=== PATIENT | female | born 1980 | race Caucasian/White ===

== ENCOUNTER 2019-08-07 20:18 | Emergency (ER) | payer SELFPAY ==
[~2019-08-07] VITALS: Ht 175.3 cm; Wt 64.1 kg
[2019-08-07 20:33] VITALS: BP 108/62; TEMP 98.8
[2019-08-07] MEDS ORDERED: ZOLOFT 25MG25 MG (20:47)
[2019-08-07 22:03] VITALS: PULSE 91
== END 2019-08-07 22:03 | disposition home or self-care (01) ==
LOC: COL.ER 20:18
DX: F41.9 Anxiety disorder, unspecified (principal); F17.210 Nicotine dependence, cigarettes, uncomplicated; Z98.51 Tubal ligation status

== ENCOUNTER 2019-12-30 19:57 | Emergency (ER) | payer SELFPAY ==
[~2019-12-30] VITALS: Ht 175.3 cm; Wt 66.4 kg
[~2019-12-30 19:57] MED LIST: ZOLOFT 25MG25 MG
[2019-12-30 20:34] LABS: COLLECTION METHOD CLEAN CATCH
[2019-12-30 20:42] LABS: AMORPHOUS CRYSTAL Present /uL; BUDDING YEAST Present /hpf; MUCOUS Present /lpf; PH 7 (5-8); SQUAMOUS EPITHELIAL 0-2 /hpf; URINE APPEARANCE Cloudy; URINE BACTERIA Moderate /hpf; URINE BILIRUBIN Negative (NEGATIVE); URINE BLOOD 2+ (NEGATIVE); URINE COLOR Yellow; URINE GLUCOSE Negative (NEGATIVE); URINE KETONE Negative (NEGATIVE); URINE LEUKOCYTE ESTERASE 3+ (NEGATIVE); URINE NITRATE Negative (NEGATIVE); URINE PROTEIN(semi-quant) Negative (NEGATIVE); URINE RBC >50 /hpf; URINE UROBILINOGEN Negative (NEGATIVE)
[2019-12-30] MEDS ORDERED: CEPHALEXIN500 M1 PO (21:22)
[2019-12-30] MEDS ORDERED: DOXYCYCLINE 10100 MG PO (21:22)
[2019-12-30] MEDS ORDERED: VALTREX1 GM PO (21:22)
[2019-12-30 21:55] VITALS: BP 138/76; PULSE 70; TEMP 98.9
== END 2019-12-30 21:57 | disposition home or self-care (01) ==
LOC: COL.ER 19:57
PROVIDERS: Emergency Medicine
DX: A60.03 Herpesviral cervicitis (principal); N39.0 Urinary tract infection, site not specified; L08.9 Local infection of the skin and subcutaneous tissue, unspecified; Z98.51 Tubal ligation status
CPT/HCPCS: J0696

== ENCOUNTER 2020-06-02 18:50 | Emergency (ER) | payer SELFPAY ==
[~2020-06-02] VITALS: Ht 175.3 cm; Wt 63.6 kg
[~2020-06-02 18:50] MED LIST changes: +CEPHALEXIN500 M1 PO; +DOXYCYCLINE 10100 MG PO; +VALTREX1 GM PO
[2020-06-02 18:54] VITALS: TEMP 98.2
[2020-06-02 19:36] LABS: COLLECTION METHOD CLEAN CATCH
[2020-06-02 19:40] LABS: BASO % 0.4 % (0.0-2.0); EOS # 0.1 (0.0-0.7); EOS % 1.2 % (0-4.0); GRAN # 7.3 (1.4-6.5); GRAN % 71.9 % (42.2-75.2); HEMATOCRIT 42.8 % (37.0-47.0); HEMOGLOBIN 13.7 g/dl (12.5-16.0); LYMPH # 2.2 (1.2-3.4); LYMPH % 21.5 % (20.0-51.0); MEAN CELL VOLUME 87 fl (80.0-100.0); MEAN CORPUSCULAR HEMOGLOBIN 28 pg (27.0-31.0); MEAN CORPUSCULAR HGB CONC 32 g/dl (33.0-37.0); MEAN PLATELET VOLUME 10.9 fl (7.4-10.4); MONO # 0.5 (0.1-0.6); MONO % 4.6 % (1.7-9.3); PLATELET COUNT 415 K/mm3 (130-400); RED BLOOD COUNT 4.91 M/mm3 (4.10-5.30); REDCELL DISTRIBUTION WIDTH-CV 13.3 % (11.5-14.5)
[2020-06-02 19:47] LABS: BUDDING YEAST Present /hpf; MUCOUS Present /lpf; PH 8 (5-8); SQUAMOUS EPITHELIAL None Seen /hpf; URINE APPEARANCE Cloudy; URINE BACTERIA Rare /hpf; URINE BILIRUBIN Negative (NEGATIVE); URINE BLOOD 2+ (NEGATIVE); URINE COLOR Yellow; URINE GLUCOSE Negative (NEGATIVE); URINE KETONE Negative (NEGATIVE); URINE LEUKOCYTE ESTERASE 3+ (NEGATIVE); URINE NITRATE Positive (NEGATIVE); URINE PROTEIN(semi-quant) 1+ (NEGATIVE); URINE RBC >50 /hpf; URINE UROBILINOGEN Negative (NEGATIVE)
[2020-06-02 19:55] LABS: ALANINE AMINOTRANSFERASE 12 U/L (4-34); ALBUMIN 3.8 gm/dL (3.5-5.0); ALKALINE PHOSPHATASE 55 U/L (50-136); ANION GAP 5 mmol/L (7-16); AST,SGOT 21 U/L (15-37); BILIRUBIN,TOTAL 0.3 mg/dL (0.0-1.0); BLOOD UREA NITROGEN 18 mg/dL (7-17); CALCIUM 8.9 mg/dL (8.4-10.2); CARBON DIOXIDE 31 mmol/L (22-30); CHLORIDE 101 mmol/L (98-107); GLUCOSE 93 mg/dL (74-106); POTASSIUM 3.5 mmol/L (3.4-5.0); SODIUM 137 mmol/L (137-145)
[2020-06-02 19:57] LABS: TRICYCLIC ANTIDEPRESS URINE NEGATIVE
[2020-06-02 20:11] LABS: ACETAMINOPHEN < 10 ug/mL (10-30); ALCOHOL(ethanol),MEDICAL < 10 mg/dL; SALICYLATE < 1.0 mg/dL
[2020-06-02] MEDS ORDERED: MACROBID 1100 MG/CAP PO (22:33)
[2020-06-02 23:31] VITALS: BP 152/100; PULSE 72
== END 2020-06-02 23:34 | disposition home or self-care (01) ==
LOC: COL.ER 18:50
PROVIDERS: Nurse Practitioner Primary Care
DX: F15.10 Other stimulant abuse, uncomplicated (principal); F22 Delusional disorders; N39.0 Urinary tract infection, site not specified; F41.9 Anxiety disorder, unspecified; F32.9 Major depressive disorder, single episode, unspecified; F17.210 Nicotine dependence, cigarettes, uncomplicated

== ENCOUNTER 2020-06-21 14:05 | Emergency (ER) | payer SELFPAY ==
[~2020-06-21] VITALS: Ht 175.3 cm; Wt 59.1 kg
[~2020-06-21 14:05] MED LIST changes: +MACROBID 1100 MG/CAP PO
[2020-06-21 14:10] VITALS: BP 166/113; PULSE 120; TEMP 98.7
== END 2020-06-21 14:32 | disposition left against medical advice (07) ==
LOC: COL.ER 14:05
DX: F41.9 Anxiety disorder, unspecified (principal); Z53.21 Procedure and treatment not carried out due to patient leaving prior to being seen by health care provider

== ENCOUNTER 2020-06-21 17:24 | Emergency (ER) | payer SELFPAY ==
[~2020-06-21] VITALS: Ht 175.3 cm; Wt 63.6 kg
[2020-06-21 17:30] VITALS: TEMP 97.5
[2020-06-21 18:12] LABS: BASO % 0.3 % (0.0-2.0); EOS % 0.1 % (0-4.0); GRAN # 7.1 (1.4-6.5); GRAN % 77.9 % (42.2-75.2); HEMATOCRIT 44.8 % (37.0-47.0); LYMPH # 1.6 (1.2-3.4); LYMPH % 16.9 % (20.0-51.0); MEAN CELL VOLUME 83 fl (80.0-100.0); MEAN CORPUSCULAR HEMOGLOBIN 28 pg (27.0-31.0); MEAN CORPUSCULAR HGB CONC 34 g/dl (33.0-37.0); MEAN PLATELET VOLUME 10.8 fl (7.4-10.4); MONO # 0.4 (0.1-0.6); MONO % 4.6 % (1.7-9.3); PLATELET COUNT 356 K/mm3 (130-400); RED BLOOD COUNT 5.38 M/mm3 (4.10-5.30); REDCELL DISTRIBUTION WIDTH-CV 13.7 % (11.5-14.5)
[2020-06-21 18:38] LABS: ALCOHOL(ethanol),MEDICAL < 10 mg/dL
[2020-06-21 18:48] LABS: ALANINE AMINOTRANSFERASE 14 U/L (4-34); ALBUMIN 4.3 gm/dL (3.5-5.0); ALKALINE PHOSPHATASE 74 U/L (50-136); ANION GAP 8 mmol/L (7-16); AST,SGOT 21 U/L (15-37); BILIRUBIN,TOTAL 0.6 mg/dL (0.0-1.0); BLOOD UREA NITROGEN 18 mg/dL (7-17); CALCIUM 9.6 mg/dL (8.4-10.2); CARBON DIOXIDE 28 mmol/L (22-30); CHLORIDE 103 mmol/L (98-107); CREATININE, serum 0.87 (0.52-1.25); GLUCOSE 111 mg/dL (74-106); SODIUM 139 mmol/L (137-145); TOTAL PROTEIN 7.6 gm/dL (6.4-8.2)
[2020-06-21 18:50] LABS: ACETAMINOPHEN < 10 ug/mL (10-30); SALICYLATE < 1.0 mg/dL
[2020-06-21 20:23] VITALS: BP 164/96; PULSE 88
== END 2020-06-21 20:30 | disposition home or self-care (01) ==
LOC: COL.ER 17:24
PROVIDERS: Nurse Practitioner
DX: F41.9 Anxiety disorder, unspecified (principal); F15.10 Other stimulant abuse, uncomplicated; F17.200 Nicotine dependence, unspecified, uncomplicated; Z98.84 Bariatric surgery status; Z32.02 Encounter for pregnancy test, result negative
CPT/HCPCS: J2060; J7030

== ENCOUNTER 2020-06-24 11:49 | Emergency (ER) | payer SELFPAY ==
[~2020-06-24] VITALS: Ht 175.3 cm; Wt 63.6 kg
[2020-06-24 11:59] VITALS: TEMP 98.3
[2020-06-24 13:50] VITALS: BP 136/96; PULSE 86
== END 2020-06-24 13:50 | disposition home or self-care (01) ==
LOC: COL.ER 11:49
DX: F41.9 Anxiety disorder, unspecified (principal); F15.10 Other stimulant abuse, uncomplicated; I45.81 Long QT syndrome; Z98.84 Bariatric surgery status

== ENCOUNTER 2020-06-30 21:00 | Emergency (ER) | payer SELFPAY ==
[~2020-06-30] VITALS: Ht 175.3 cm; Wt 63.6 kg
[2020-06-30 21:24] VITALS: BP 134/99; PULSE 91; TEMP 97.4
[2020-07-01 00:19] LABS: BASO % 0.3 % (0.0-2.0); EOS # 0.1 (0.0-0.7); EOS % 0.8 % (0-4.0); GRAN % 72.1 % (42.2-75.2); HEMATOCRIT 40.7 % (37.0-47.0); HEMOGLOBIN 13.3 g/dl (12.5-16.0); LYMPH # 2.4 (1.2-3.4); LYMPH % 21.7 % (20.0-51.0); MEAN CELL VOLUME 86 fl (80.0-100.0); MEAN CORPUSCULAR HEMOGLOBIN 28 pg (27.0-31.0); MEAN CORPUSCULAR HGB CONC 33 g/dl (33.0-37.0); MEAN PLATELET VOLUME 10.5 fl (7.4-10.4); MONO # 0.5 (0.1-0.6); MONO % 4.8 % (1.7-9.3); PLATELET COUNT 351 K/mm3 (130-400); RED BLOOD COUNT 4.75 M/mm3 (4.10-5.30); REDCELL DISTRIBUTION WIDTH-CV 13.4 % (11.5-14.5)
[2020-07-01 00:43] LABS: ALCOHOL(ethanol),MEDICAL < 10 mg/dL
[2020-07-01 00:46] LABS: BLOOD UREA NITROGEN 22 mg/dL (7-17); CALCIUM 8.8 mg/dL (8.4-10.2); CARBON DIOXIDE 32 mmol/L (22-30); CHLORIDE 99 mmol/L (98-107); CREATININE, serum 0.8 (0.52-1.25); GLUCOSE 88 mg/dL (74-106); POTASSIUM 3.8 mmol/L (3.4-5.0); SODIUM 137 mmol/L (137-145)
[2020-07-01 00:47] LABS: ACETAMINOPHEN < 10 ug/mL (10-30); ALANINE AMINOTRANSFERASE 7 U/L (4-34); ALBUMIN 3.9 gm/dL (3.5-5.0); ALKALINE PHOSPHATASE 61 U/L (50-136); AST,SGOT 15 U/L (15-37); BILIRUBIN,TOTAL 0.4 mg/dL (0.0-1.0); SALICYLATE < 1.0 mg/dL; TOTAL PROTEIN 6.9 gm/dL (6.4-8.2)
[2020-07-01 01:06] LABS: ANION GAP 6 mmol/L (7-16)
== END 2020-07-01 01:37 | disposition left against medical advice (07) ==
LOC: COL.ER 21:00
PROVIDERS: Nurse Practitioner Primary Care
DX: R10.31 Right lower quadrant pain (principal); R10.32 Left lower quadrant pain; F32.9 Major depressive disorder, single episode, unspecified; F41.9 Anxiety disorder, unspecified; F17.210 Nicotine dependence, cigarettes, uncomplicated

== ENCOUNTER 2020-11-13 13:15 | Emergency (ER) | payer SELFPAY ==
[~2020-11-13] VITALS: Ht 175.3 cm; Wt 63.6 kg
[2020-11-13 14:18] LABS: BASO % 0.3 % (0.0-2.0); EOS # 0.1 (0.0-0.7); EOS % 0.8 % (0-4.0); GRAN # 5.8 (1.4-6.5); GRAN % 74.5 % (42.2-75.2); HEMATOCRIT 43.7 % (37.0-47.0); HEMOGLOBIN 14.2 g/dl (12.5-16.0); LYMPH # 1.3 (1.2-3.4); LYMPH % 17.1 % (20.0-51.0); MEAN CELL VOLUME 89 fl (80.0-100.0); MEAN CORPUSCULAR HEMOGLOBIN 29 pg (27.0-31.0); MEAN CORPUSCULAR HGB CONC 33 g/dl (33.0-37.0); MEAN PLATELET VOLUME 10.8 fl (7.4-10.4); MONO # 0.5 (0.1-0.6); PLATELET COUNT 292 K/mm3 (130-400); RED BLOOD COUNT 4.94 M/mm3 (4.10-5.30); REDCELL DISTRIBUTION WIDTH-CV 13.4 % (11.5-14.5)
[2020-11-13 14:29] LABS: ALANINE AMINOTRANSFERASE 12 U/L (4-34); ALBUMIN 4.6 gm/dL (3.5-5.0); ALKALINE PHOSPHATASE 62 U/L (50-136); ANION GAP 9 mmol/L (7-16); AST,SGOT 23 U/L (15-37); BILIRUBIN,TOTAL 0.8 mg/dL (0.0-1.0); BLOOD UREA NITROGEN 18 mg/dL (7-17); CALCIUM 9.5 mg/dL (8.4-10.2); CARBON DIOXIDE 28 mmol/L (22-30); CHLORIDE 103 mmol/L (98-107); CREATININE, serum 0.77 (0.52-1.25); GLUCOSE 94 mg/dL (74-106); POTASSIUM 3.7 mmol/L (3.4-5.0); SODIUM 140 mmol/L (137-145); TOTAL PROTEIN 8.5 gm/dL (6.4-8.2)
[2020-11-13 14:44] LABS: ACETAMINOPHEN < 10 ug/mL (10-30); ALCOHOL(ethanol),MEDICAL < 10 mg/dL; SALICYLATE < 1.0 mg/dL
[2020-11-13 14:58] LABS: TSH w REFLEX 0.852 uIU/mL (0.465-4.680)
[2020-11-13 17:25] VITALS: BP 123/67; PULSE 67; TEMP 97.6
== END 2020-11-13 17:25 | disposition home or self-care (01) ==
LOC: COL.ER 13:15
PROVIDERS: Emergency Medicine
DX: F15.10 Other stimulant abuse, uncomplicated (principal); F17.210 Nicotine dependence, cigarettes, uncomplicated

== ENCOUNTER 2020-11-21 03:04 | Emergency (ER) | payer SELFPAY ==
[~2020-11-21] VITALS: Ht 175.3 cm; Wt 68.2 kg
[2020-11-21 03:06] VITALS: TEMP 98.5
[2020-11-21 03:43] LABS: BASO % 0.3 % (0.0-2.0); EOS # 0.1 (0.0-0.7); EOS % 0.8 % (0-4.0); GRAN # 5.1 (1.4-6.5); GRAN % 67.4 % (42.2-75.2); HEMATOCRIT 42.2 % (37.0-47.0); HEMOGLOBIN 13.8 g/dl (12.5-16.0); LYMPH # 1.8 (1.2-3.4); LYMPH % 24.2 % (20.0-51.0); MEAN CELL VOLUME 87 fl (80.0-100.0); MEAN CORPUSCULAR HEMOGLOBIN 28 pg (27.0-31.0); MEAN CORPUSCULAR HGB CONC 33 g/dl (33.0-37.0); MEAN PLATELET VOLUME 10.7 fl (7.4-10.4); MONO # 0.5 (0.1-0.6); PLATELET COUNT 309 K/mm3 (130-400); RED BLOOD COUNT 4.88 M/mm3 (4.10-5.30)
[2020-11-21 03:54] LABS: ALANINE AMINOTRANSFERASE 12 U/L (4-34); ALBUMIN 4.5 gm/dL (3.5-5.0); ALKALINE PHOSPHATASE 61 U/L (50-136); ANION GAP 7 mmol/L (7-16); AST,SGOT 19 U/L (15-37); BILIRUBIN,TOTAL 0.5 mg/dL (0.0-1.0); BLOOD UREA NITROGEN 16 mg/dL (7-17); CALCIUM 9.3 mg/dL (8.4-10.2); CARBON DIOXIDE 27 mmol/L (22-30); CHLORIDE 104 mmol/L (98-107); CREATININE, serum 0.74 (0.52-1.25); GLUCOSE 94 mg/dL (74-106); POTASSIUM 3.3 mmol/L (3.4-5.0); SODIUM 138 mmol/L (137-145); TOTAL PROTEIN 8.2 gm/dL (6.4-8.2)
[2020-11-21 03:56] LABS: ACETAMINOPHEN < 10 ug/mL (10-30)
[2020-11-21 03:57] LABS: ALCOHOL(ethanol),MEDICAL < 10 mg/dL; SALICYLATE < 1.0 mg/dL
[2020-11-21 06:24] VITALS: BP 134/90; PULSE 93
[2020-11-22] MEDS ORDERED: CEPHALEXIN500 M1 PO (13:30)
== END 2020-11-21 06:37 | disposition home or self-care (01) ==
LOC: COL.ER 03:04
PROVIDERS: Emergency Medicine
DX: Z53.20 Procedure and treatment not carried out because of patient's decision for unspecified reasons (principal); F32.9 Major depressive disorder, single episode, unspecified; F41.9 Anxiety disorder, unspecified; E87.6 Hypokalemia; Z87.891 Personal history of nicotine dependence

== ENCOUNTER 2020-11-22 11:38 | Emergency (ER) | payer SELFPAY ==
[~2020-11-22] VITALS: Ht 170.2 cm; Wt 65.9 kg
[2020-11-22 12:31] LABS: COLLECTION METHOD CLEAN CATCH
[2020-11-22 12:46] LABS: MUCOUS Present /lpf; PH 5 (5-8); SQUAMOUS EPITHELIAL 0-2 /hpf; URINE APPEARANCE Cloudy; URINE BACTERIA Moderate /hpf; URINE BILIRUBIN Negative (NEGATIVE); URINE BLOOD 3+ (NEGATIVE); URINE COLOR Yellow; URINE GLUCOSE Negative (NEGATIVE); URINE KETONE Negative (NEGATIVE); URINE LEUKOCYTE ESTERASE 3+ (NEGATIVE); URINE NITRATE Positive (NEGATIVE); URINE PROTEIN(semi-quant) 2+ (NEGATIVE); URINE RBC >50 /hpf; URINE UROBILINOGEN Negative (NEGATIVE); URINE WBC >50 /hpf
[2020-11-22] MEDS ORDERED: CEPHALEXIN500 M1 PO (13:30)
[2020-11-22 13:44] LABS: TRICYCLIC ANTIDEPRESS URINE NEGATIVE
[2020-11-22 14:05] VITALS: BP 107/73; PULSE 91
== END 2020-11-22 14:05 | disposition home or self-care (01) ==
LOC: COL.ER 11:38
PROVIDERS: Family Medicine; Personal Emergency Response Attendant
DX: S30.0XXA Contusion of lower back and pelvis, initial encounter (principal); N39.0 Urinary tract infection, site not specified; F17.210 Nicotine dependence, cigarettes, uncomplicated; Z53.20 Procedure and treatment not carried out because of patient's decision for unspecified reasons; W19.XXXA Unspecified fall, initial encounter; Y92.59 Other trade areas as the place of occurrence of the external cause; Y99.0 Civilian activity done for income or pay

== ENCOUNTER 2022-01-06 11:27 | Emergency (ER) | payer SELFPAY ==
[~2022-01-06] VITALS: Ht 175.3 cm; Wt 77.3 kg
[2022-01-06 11:32] VITALS: TEMP 98.4
[2022-01-06 13:24] LABS: COLLECTION METHOD CLEAN CATCH
[2022-01-06 13:31] LABS: BASO % 0.6 % (0.0-2.0); EOS # 0.1 K/mm3 (0.0-0.7); EOS % 1.9 % (0.0-4.0); GRAN # 4.1 K/mm3 (1.4-6.5); GRAN % 63.7 % (42.2-75.2); HEMOGLOBIN 13.5 g/dl (12.5-16.0); LYMPH # 1.8 K/mm3 (1.2-3.4); LYMPH % 28.3 % (20.0-51.0); MEAN CELL VOLUME 88 fl (80.0-100.0); MEAN CORPUSCULAR HEMOGLOBIN 28 pg (27-31); MEAN CORPUSCULAR HGB CONC 32 g/dl (33.0-37.0); MEAN PLATELET VOLUME 11.5 fl (7.4-10.4); MONO # 0.3 K/mm3 (0.1-0.6); PLATELET COUNT 295 K/mm3 (130-400); RED BLOOD COUNT 4.77 M/mm3 (4.10-5.30); REDCELL DISTRIBUTION WIDTH-CV 13.9 % (11.5-14.5)
[2022-01-06] MEDS ORDERED: DOXYCYCLINE 10100 MG PO (13:42)
[2022-01-06 13:48] LABS: MUCOUS Present (NOT PRESENT); PH 6 (5-8); SQUAMOUS EPITHELIAL 0-2 /hpf (0-10); URINE APPEARANCE Cloudy (CLEAR/HAZY); URINE BACTERIA Moderate /hpf (NONE SEEN); URINE BLOOD 2+ (NEGATIVE); URINE COLOR Yellow (YELLOW); URINE GLUCOSE Negative (NEGATIVE); URINE KETONE Negative (NEGATIVE); URINE NITRATE Positive (NEGATIVE); URINE PROTEIN(semi-quant) Negative (NEGATIVE); URINE RBC >50 /hpf (0-2); URINE UROBILINOGEN Negative (NEGATIVE)
[2022-01-06 13:48] LABS: ALBUMIN 3.4 gm/dL (3.5-5.0); BILIRUBIN,TOTAL 0.3 mg/dL (0.2-1.2); CALCIUM 9.3 mg/dL (8.4-10.2); CREATININE, serum 0.79 mg/dL (0.57-1.11); POTASSIUM 4.5 mmol/L (3.5-4.5); TOTAL PROTEIN 6.8 gm/dL (6.2-8.1)
[2022-01-06] MEDS ORDERED: OMNICEF 300MG300 MG PO (13:58)
[2022-01-06 14:10] VITALS: BP 134/73; PULSE 86
== END 2022-01-06 14:11 | disposition home or self-care (01) ==
LOC: COL.ER 11:27
PROVIDERS: Nurse Practitioner Family
DX: N72 Inflammatory disease of cervix uteri (principal); N39.0 Urinary tract infection, site not specified; Z32.02 Encounter for pregnancy test, result negative; Z72.51 High risk heterosexual behavior; Z86.19 Personal history of other infectious and parasitic diseases; Z87.442 Personal history of urinary calculi
CPT/HCPCS: J0696; J1885; J7030

== ENCOUNTER 2022-02-11 09:07 | Emergency (ER) | payer SELFPAY ==
[~2022-02-11] VITALS: Ht 175.3 cm; Wt 77.3 kg
[~2022-02-11 09:07] MED LIST changes: +OMNICEF 300MG300 MG PO
[2022-02-11 10:09] LABS: COLLECTION METHOD CLEAN CATCH
[2022-02-11 10:32] LABS: URINE COLOR Yellow (YELLOW)
[2022-02-11 10:33] LABS: PH 6.5 (5.0-8.5); URINE APPEARANCE Hazy (CLEAR/HAZY); URINE BLOOD 2+ (NEGATIVE); URINE GLUCOSE Negative (NEGATIVE); URINE KETONE Negative (NEGATIVE); URINE NITRATE Positive (NEGATIVE); URINE PROTEIN(semi-quant) 1+ (NEGATIVE); URINE UROBILINOGEN 0.2 E.U/dL (0.2-1.0)
[2022-02-11 10:37] LABS: BUDDING YEAST Present (NOT PRESENT); MUCOUS Present (NOT PRESENT); SQUAMOUS EPITHELIAL 0-2 /hpf (0-10); URINE BACTERIA Rare /hpf (NONE SEEN); URINE RBC >50 /hpf (0-2)
[2022-02-11 10:49] LABS: BASO % 0.4 % (0.0-2.0); EOS # 0.1 K/mm3 (0.0-0.7); EOS % 1.3 % (0.0-4.0); GRAN # 3.4 K/mm3 (1.4-6.5); GRAN % 63.8 % (42.2-75.2); HEMATOCRIT 43.7 % (37.0-47.0); HEMOGLOBIN 14.3 g/dl (12.5-16.0); LYMPH # 1.6 K/mm3 (1.2-3.4); LYMPH % 29.4 % (20.0-51.0); MEAN CELL VOLUME 88 fl (80.0-100.0); MEAN CORPUSCULAR HEMOGLOBIN 29 pg (27-31); MEAN CORPUSCULAR HGB CONC 33 g/dl (33.0-37.0); MEAN PLATELET VOLUME 11.1 fl (7.4-10.4); MONO # 0.3 K/mm3 (0.1-0.6); MONO % 4.9 % (1.7-9.3); PLATELET COUNT 294 K/mm3 (130-400); RED BLOOD COUNT 4.99 M/mm3 (4.10-5.30); REDCELL DISTRIBUTION WIDTH-CV 13.3 % (11.5-14.5)
[2022-02-11 10:50] LABS: TRICYCLIC ANTIDEPRESS URINE NEGATIVE
[2022-02-11 11:07] LABS: ALANINE AMINOTRANSFERASE 16 U/L (0-55); ALBUMIN 3.8 gm/dL (3.5-5.0); ALKALINE PHOSPHATASE 58 U/L (40-150); ANION GAP 10 mmol/L (7-16); AST,SGOT 15 U/L (5-34); BILIRUBIN,TOTAL 0.3 mg/dL (0.2-1.2); BLOOD UREA NITROGEN 13 mg/dL (7-19); CALCIUM 9.4 mg/dL (8.4-10.2); CARBON DIOXIDE 27 mmol/L (22-29); CHLORIDE 105 mmol/L (98-107); CREATININE, serum 0.77 mg/dL (0.57-1.11); GLUCOSE 92 mg/dL (70-99); POTASSIUM 4.5 mmol/L (3.5-4.5); SODIUM 142 mmol/L (136-145); TOTAL PROTEIN 7.2 gm/dL (6.2-8.1)
[2022-02-11 11:09] LABS: ACETAMINOPHEN < 1.0 ug/mL (10-30); ALCOHOL(ethanol),MEDICAL < 10 mg/dL (0-10); SALICYLATE < 5.0 mg/dL (15.0-30.0)
[2022-02-11 11:28] LABS: TSH w REFLEX 2.099 uIU/mL (0.350-4.940)
[2022-02-11] MEDS ORDERED: CEPHALEXIN500 M1 PO (14:37)
[2022-02-11 15:40] VITALS: BP 118/78; PULSE 80
== END 2022-02-11 15:40 | disposition home or self-care (01) ==
LOC: COL.ER 09:07
PROVIDERS: Nurse Practitioner
DX: R45.851 Suicidal ideations (principal); N39.0 Urinary tract infection, site not specified; B37.9 Candidiasis, unspecified; F17.210 Nicotine dependence, cigarettes, uncomplicated; Z20.822 Contact with and (suspected) exposure to COVID-19